=== PATIENT | male | born 1995 | race Caucasian/White ===

== ENCOUNTER 2021-10-03 14:20 | Emergency (ER) | payer BC, OTHER ==
[2021-10-03] MEDS ORDERED: Diphtheria,Pertussis(Acell),Tetanus Vaccine 0.5 ML Syringe IM ONE (15:15)
--- NOTE | 2021-10-03 15:53 | EDM.PDOC ---
ED HPI GENERAL MEDICAL PROBLEM - General Chief Complaint: Laceration Stated Complaint: LEFT HAND INJURY Time Seen by Provider: 10/03/21 14:25 Source of Information: Reports: Patient History Limitations: Reports: No Limitations - History of Present Illness INITIAL COMMENTS - FREE TEXT/NARRATIVE: Patient presented to the ED because of a left mid finger laceration. He was working with a metal which fell on his finger and he sustained a 6 cm laceration. He is able to extend and flex the left mid finger without any difficulty. Left Finger-Middle Pain Score (Numeric/FACES): 3 - Related Data Allergies Allergy/AdvReac Type Severity Reaction Status Date / Time No Known Allergies Allergy Verified 10/03/21 14:51 Home Meds: Home Meds cephALEXin [Keflex] 500 mg PO Q8H #30 cap 10/03/21 [Rx] Past Medical History - Past Health History Medical/Surgical History: Denies Medical/Surgical History - Past Surgical History HEENT Surgical History: Reports: Oral Surgery, Tonsillectomy Social & Family History - Tobacco Use Tobacco Use Status *Q: Light Tobacco User Years of Tobacco use: 4 Packs/Tins Daily: 0.5 - Caffeine Use Caffeine Use: Reports: Coffee, Energy Drinks, Soda - Recreational Drug Use Recreational Drug Use: No ED ROS GENERAL - Review of Systems Review Of Systems: See Below Constitutional: Reports: No Symptoms HEENT: Reports: No Symptoms Respiratory: Reports: No Symptoms Cardiovascular: Reports: No Symptoms Endocrine: Reports: No Symptoms GI/Abdominal: Reports: No Symptoms : Reports: No Symptoms Musculoskeletal: Reports: No Symptoms Skin: Reports: Other (left mid finger laceration-6 cm) Neurological: Reports: No Symptoms Psychiatric: Reports: No Symptoms ED EXAM, SKIN/RASH Exam: See Below Exam Limited By: Intoxication General Appearance: Alert, No Apparent Distress Eye Exam: Bilateral Eye: PERRL Ears: Normal External Exam, Normal Canal Nose: Normal Inspection, Normal Mucosa Throat/Mouth: Normal Inspection, Normal Lips, Normal Teeth Head: Atraumatic, Normocephalic Neck: Normal Inspection, Supple, Non-Tender, Full Range of Motion Respiratory/Chest: No Respiratory Distress, Lungs Clear, Normal Breath Sounds, No Accessory Muscle Use, Chest Non-Tender Cardiovascular: Normal Peripheral Pulses, Regular Rate, Rhythm, No Edema, No Gallop, No JVD, No Murmur, No Rub GI/Abdominal: Normal Bowel Sounds, Soft, Non-Tender, No Organomegaly, No Distention, No Abnormal Bruit, No Mass Back Exam: Normal Inspection, Full Range of Motion Extremities: Normal Inspection, Normal Range of Motion, Non-Tender, No Pedal Edema, Normal Capillary Refill Neurological: Alert, Oriented, CN II-XII Intact, Normal Cognition Psychiatric: Normal Affect, Normal Mood Skin: Warm, Intact, Normal Color, No Rash ED SKIN PROCEDURES - Laceration/Wound Repair Left Digit - 3rd (Middle) Appearance: Superficial, Heavily Contaminated Anesthetic Type: Local Local Anesthesia - Lidocaine (Xylocaine): 2% Plain Local Anesthetic Volume: 2cc Skin Prep: Chlorhexidine (Hibiciens) Saline Irrigation (cc's): 250 Exploration/Debridement/Repair: Wound Explored Closed with: Sutures Lac/Wound length In cm: 10 Suture Size: 3-0 Suture Type: Silk Course - Vital Signs Text/Narrative:: Tdap Last Recorded V/S: Last Vital Signs Temp 37.2 C 10/03/21 14:22 Pulse 67 10/03/21 16:05 Resp 15 10/03/21 16:05 BP 123/79 10/03/21 16:05 Pulse Ox 99 10/03/21 16:05 - Orders/Labs/Meds Meds: Medications Discontinued Medications Generic Name Dose Route Start Last Admin Trade Name Shahnaz PRN Reason Stop Dose Admin Diphtheria/Tetanus/Acell Pertussis 0.5 ml 10/03/21 15:15 10/03/21 16:03 Diphtheria,Pertussis(Acell),Tetanus Vaccine 0.5 Ml Syringe IM 10/03/21 15:16 0.5 ml .ONCE ONE Administration Departure - Departure Time of Disposition: 15:50 Disposition: Home, Self-Care 01 Condition: Good Clinical Impression: Laceration - Discharge Information Prescriptions: cephALEXin [Keflex] 500 mg PO Q8H #30 cap Instructions: Laceration Care, Adult Referrals: PCP,None [Primary Care Provider] - Forms: ED Department Discharge Additional Instructions: Please read discharge instructions on laceration and wound care Don't cover your wound when you are inside the house, moisture will attract bacteria to grow No need to apply an antibiotic ointment because you will be taking an oral antibiotics Keflex/Cephalexin 500 mg 3 times daily for 10 days(take it with food because it can cause an upset stomach) Removal of suture in 10 days Sepsis Event Note (ED) - Evaluation Sepsis Screening Result: No Definite Risk
== END 2021-10-03 16:07 | disposition home or self-care (01) ==
LOC: FB.ED 14:20
DX: S61.213A Laceration without foreign body of left middle finger without damage to nail, initial encounter (principal); Z72.0 Tobacco use; Z23 Encounter for immunization; W20.8XXA Other cause of strike by thrown, projected or falling object, initial encounter; Y92.89 Other specified places as the place of occurrence of the external cause; Y99.0 Civilian activity done for income or pay
CPT/HCPCS: 12002; 90471; 90715; 99282-25